=== PATIENT | male | born 1975 | race Hispanic/Latino ===

== ENCOUNTER 2017-01-23 01:42 | Emergency (ER) | payer BC ==
[2017-01-23 01:51] VITALS: BMI 41.5
--- NOTE | 2017-01-23 02:13 | ED PDOC ---
Arrival/HPI - History of Present Illness Time/Duration: 1-3 hours Symptom Onset: Sudden Symptom Course: Unchanged Quality: Aching Severity Level: 7 Activities at Onset: Rest Context: Home - General Chief Complaint: GI Problem - History of Present Illness Narrative History of Present Illness (Text): 01/23/17 02:11 41yo M PMH Hemorrhoids, nephrolithiasis, and Hypertension w/ hx of cholecystitis who presents with complaints of bright red blood on tissue paper. Pt states that he went to use the bathroom and had a large watery bowel movement. Pt wiped and noticed blood on tissue paper. Pt took two Tylenol and went to sleep, but woke up again and had another large watery bowel movement and took a shower and came to the emergency department. Pt states that he has had these episodes before, and per Dr. Nino, who told him to go to ER if it happens again. Pt denies active bleeding, constipation, headaches, fevers, n/v. SHx +tobacco use 1pk/d. (KAYLEIGH MONTEMAYOR) Past Medical History - Provider Review Nursing Documentation Reviewed: Yes - Infectious Disease Hx of Infectious Diseases: None - Tetanus Immunization Tetanus Immunization: Unknown - Cardiac Hx Cardiac Disorders: Yes Hx Hypertension: Yes - Pulmonary Hx Bronchitis: Yes Hx Pneumonia: Yes - Neurological Hx Neurological Disorder: No - HEENT Hx HEENT Disorder: No - Renal Hx Renal Disorder: No - Endocrine/Metabolic Hx Endocrine Disorders: No - Hematological/Oncological Hx Blood Disorders: No - Integumentary Hx Dermatological Disorder: No - Musculoskeletal/Rheumatological Hx Falls: No Other/Comment: back sx - Gastrointestinal Hx Gastrointestinal Disorders: Yes Hx Hemorrhoids: Yes - Genitourinary/Gynecological Other/Comment: Kidney stones - Psychiatric Hx Psychophysiologic Disorder: No Hx Substance Use: No - Surgical History Hx Cholecystectomy: Yes Hx Orthopedic Surgery: Yes (BACK) - Anesthesia Hx Anesthesia: Yes Hx Anesthesia Reactions: No Hx Malignant Hyperthermia: No - Suicidal Assessment Feels Threatened In Home Enviroment: No Family/Social History - Physician Review Nursing Documentation Reviewed: Yes Family/Social History: No Known Family HX Smoking Status: Heavy Smoker > 10 Cigarettes Daily Hx Alcohol Use: No Hx Substance Use: No Hx Substance Use Treatment: No Allergies/Home Meds Allergies/Adverse Reactions: Allergies cilantro Allergy (Uncoded 04/26/14 12:46) RASH scallion Allergy (Uncoded 04/26/14 12:46) RASH Review of Systems - Physician Review All systems were reviewed & negative as marked: Yes - Review of Systems Constitutional: Normal. absent: Fatigue Respiratory: Normal Cardiovascular: Normal Gastrointestinal: Other (blood on tissue paper s/p BM) Physical Exam - Physical Exam Physical Exam Limitations: Altered Mental Status Vital Signs Reviewed: Yes Appearance: Positive for: Well-Appearing Pain Distress: None Mental Status: Positive for: Alert and Oriented X 3 - Systems Exam Head: Present: Atraumatic, Normocephalic Pupils: Present: PERRL Extroacular Muscles: Present: EOMI Conjunctiva: Present: Normal Neck: Present: Normal Range of Motion Respiratory/Chest: Present: Clear to Auscultation, Good Air Exchange Cardiovascular: Present: Regular Rate and Rhythm, Normal S1, S2 Abdomen: Present: Normal Bowel Sounds. No: Tenderness, Distention Rectal: Present: Rectal Tenderness, Hemorrhoids (external non-thrombosed). No: Occult Blood, Gross Blood, Fissures, Nodule/Mass/Lesions Upper Extremity: Present: Normal Inspection Lower Extremity: Present: Normal Inspection Neurological: Present: CN II-XII Intact, Speech Normal Skin: Present: Warm, Dry, Normal Color Psychiatric: Present: Alert, Oriented x 3 Vital Signs Temp Pulse Resp BP Pulse Ox 01/23/17 02:57 96 H 18 100 01/23/17 02:47 98.4 F 120 H 17 149/96 H 99 Medical Decision Making ED Course and Treatment: 01/23/17 02:29 Impression: external hemorrhoids Plan: - Reassess and disposition Progress Notes: no blood noted on LOW (KAYLEIGH MONTEMAYOR) Patient seen and examined with resident. Came up with treatment and disposition plan with resident. (Garfield Schilling) Disposition/Present on Arrival - Present on Arrival Any Indicators Present on Arrival: No History of DVT/PE: No History of Uncontrolled Diabetes: No Urinary Catheter: No History of Decub. Ulcer: No History Surgical Site Infection Following: None - Disposition Have Diagnosis and Disposition been Completed?: Yes Disposition Time: 02:30 Patient Plan: Discharge - Disposition Diagnosis: Hemorrhoid Disposition: HOME/ ROUTINE Patient Problems: Current Active Problems Problem Status Onset Hemorrhoid Acute Condition: GOOD Discharge Instructions (ExitCare): Hemorrhoids (ED) Additional Instructions: PLEASE RETURN TO THE EMERGENCY DEPARTMENT FOR NEW OR WORSENING SYMPTOMS. RETURN RIGHT AWAY IF YOU CANNOT FOLLOW UP WITH YOUR PRIMARY CARE DOCTOR, CLINIC, OR SPECIALIST IN 1-2 DAYS. Prescriptions: Hydrocortisone 2.5% (Rectal) [Anusol-HC] 30 applic TP BID #1 tube Referrals: Reuben See MD [Medical Doctor] - Follow up with primary Forms: [employer] ([place]ander), WORK NOTE
[2017-01-23 02:48] VITALS: BP 149/96; TEMP 98.4
[2017-01-23 02:58] VITALS: PULSE 96; RESP 18; O2SAT 100
== END 2017-01-23 03:05 | disposition home or self-care (01) ==
LOC: ED 01:42
DX: K64.4 Residual hemorrhoidal skin tags (principal); I10 Essential (primary) hypertension

== ENCOUNTER 2018-08-10 19:21 | Emergency (ER) | payer BC ==
[2018-08-10 19:27] VITALS: BMI 44.4
[2018-08-10 19:30] VITALS: TEMP 97.6
[2018-08-10 20:00] LABS: BASO # 0.01 K/mm3 (0.0-2.0); BASO % 0.1 % (0.0-3.0); EOS # 0.1 (0.0-0.7); EOS % 0.7 % (1.5-5.0); HEMOGLOBIN 16.5 g/dL (14.0-18.0); LYMPH # 1.4 (1.2-3.4); MEAN CELL VOLUME 87.3 fl (80.0-105.0); MEAN CORPUSCULAR HEMOGLOBIN 30.3 pg (25.0-35.0); MEAN CORPUSCULAR HGB CONC 34.7 g/dl (31.0-37.0); MEAN PLATELET VOLUME 9.3 fl (7.0-11.0); MONO # 0.8 (0.1-0.6); MONO % 6.1 % (1.0-6.0); RBC 5.44 10^6/uL (3.5-6.1); RED CELL DISTRIBUTION WIDTH 14.5 % (11.5-14.5); WHITE BLOOD COUNT 12.9 10^3/uL (4.5-11.0)
[2018-08-10 20:11] LABS: INR 1.02; PARTIAL THROMBOPLASTIN TIME 34.2 Seconds (26.9-38.3); PROTHROMBIN TIME 11.3 SECONDS (9.4-12.5)
[2018-08-10 20:14] LABS: ALB/GLOB RATIO 1.4 (1.1-1.8); ALBUMIN 4.5 g/dL (3.0-4.8); ALT/SGPT 27 U/L (7-56); AST/SGOT 26 U/L (17-59); BLOOD UREA NITROGEN 14 mg/dL (7-21); CALCIUM 9.4 mg/dL (8.4-10.5); GFR NON-AFRICAN AMERICAN > 60; LIPASE 194 U/L (23-300)
[2018-08-10 20:25] LABS: TROPONIN I < 0.01 ng/mL
[2018-08-10] MEDS ORDERED: Morphine 2 mg/ml ISec IVP STA (20:38)
--- NOTE | 2018-08-10 21:05 | ED PDOC ---
Arrival/HPI - General Chief Complaint: Abdominal Pain Time Seen by Provider: 08/10/18 19:28 Historian: Patient - History of Present Illness Narrative History of Present Illness (Text): 08/10/18 20:42 Nasim Knox is 43 y.o Male with past medical history Hemorrhoids, nephrolithiasis, and Hypertension w/ hx of cholecystitis, former smoker, who presents to emergency department complaining of left lower quadrant abdominal pain since 2:00pm. Patient states he woke due to the pain coming from his abdomen that is radiating to the back. Patient state severity of pain as 10, but has not taken any medication for the pain. Patient notes he has had abdominal pain before but not as severe as today. Patient states he is feeling nauseous, but denies any fevers, chill, chest pain, vomiting, diarrhea, neck pain, urinary symptoms, or any other associated symptoms. Time/Duration: 4-6 hours (2:00pm) Symptom Onset: Gradual Severity Level: 10 Context: Home Past Medical History - Provider Review Nursing Documentation Reviewed: Yes - Infectious Disease Hx of Infectious Diseases: None - Tetanus Immunization Tetanus Immunization: Unknown - Cardiac Hx Cardiac Disorders: Yes Hx Hypertension: Yes - Pulmonary Hx Bronchitis: Yes Hx Pneumonia: Yes - Neurological Hx Neurological Disorder: No - HEENT Hx HEENT Disorder: No - Renal Hx Renal Disorder: No - Endocrine/Metabolic Hx Endocrine Disorders: No - Hematological/Oncological Hx Blood Disorders: No - Integumentary Hx Dermatological Disorder: No - Musculoskeletal/Rheumatological Hx Falls: No Other/Comment: back sx - Gastrointestinal Hx Gastrointestinal Disorders: Yes Hx Hemorrhoids: Yes - Genitourinary/Gynecological Other/Comment: Kidney stones - Psychiatric Hx Psychophysiologic Disorder: No Hx Substance Use: No - Surgical History Hx Cholecystectomy: Yes Hx Orthopedic Surgery: Yes (BACK) - Anesthesia Hx Anesthesia: Yes Hx Anesthesia Reactions: No Hx Malignant Hyperthermia: No - Suicidal Assessment Feels Threatened In Home Enviroment: No Family/Social History - Physician Review Nursing Documentation Reviewed: Yes Family/Social History: Unknown Family HX Smoking Status: Heavy Smoker > 10 Cigarettes Daily Hx Alcohol Use: No Hx Substance Use: No Hx Substance Use Treatment: No Allergies/Home Meds Allergies/Adverse Reactions: Allergies cilantro Allergy (Uncoded 08/10/18 19:27) RASH scallion Allergy (Uncoded 08/10/18 19:27) RASH Review of Systems - Physician Review All systems were reviewed & negative as marked: Yes - Review of Systems Constitutional: absent: Fatigue, Fevers Eyes: absent: Vision Changes ENT: absent: Hearing Changes Respiratory: absent: SOB, Cough, Wheezing Cardiovascular: absent: Chest Pain Gastrointestinal: Abdominal Pain (Pain on left lower quadrant of abdomen radiating to the back. ), Nausea. absent: Stool Changes, Constipation, Diarrhea, Vomiting Musculoskeletal: absent: Neck Pain Skin: absent: Rash Neurological: absent: Headache, Dizziness Psychiatric: absent: Anxiety, Depression Physical Exam Vital Signs Temp Pulse Resp BP Pulse Ox 08/10/18 19:28 97.6 F 102 H 18 142/62 97 Temperature: Afebrile Blood Pressure: Normal Pulse: Tachycardic Respiratory Rate: Normal Appearance: Positive for: Well-Appearing, Non-Toxic Pain Distress: None Mental Status: Positive for: Alert and Oriented X 3 - Systems Exam Head: Present: Atraumatic, Normocephalic Pupils: Present: PERRL. No: Sluggish, Non-Reactive Extroacular Muscles: Present: EOMI Conjunctiva: Present: Normal Mouth: Present: Moist Mucous Membranes Neck: Present: Normal Range of Motion. No: Meningeal Signs, JVD Respiratory/Chest: Present: Clear to Auscultation, Good Air Exchange. No: Respiratory Distress, Accessory Muscle Use, Wheezes, Decreased Breath Sounds, Rhonchi Cardiovascular: Present: Regular Rate and Rhythm, Normal S1, S2. No: Murmurs Abdomen: Present: Distention (Abdomen diffused and distended.), Guarding, Other ( No rigidity ) Back: Present: Normal Inspection. No: Midline Tenderness Upper Extremity: Present: Normal Inspection, Normal ROM. No: Cyanosis, Edema, Tenderness, Swelling Lower Extremity: Present: Normal Inspection. No: Edema, Tenderness, Swelling Neurological: Present: GCS=15, Speech Normal Skin: Present: Warm, Dry, Normal Color. No: Rashes Psychiatric: Present: Alert, Oriented x 3, Normal Insight, Normal Concentration Medical Decision Making ED Course and Treatment: 08/10/18 21:35 Impression: 43 y/o male who presents to the emergency department complaining of left lower quadrant abdominal pain. Plan: -- Labs -- Abdominal/ Pelvis CT -- Chest-X- Ray -- Reassess and disposition Prior Visits: Notes and results from previous visits were reviewed. Progress Notes: - Lab Interpretations Lab Results: PT 11.3 SECONDS (9.4-12.5) 08/10/18 19:55 INR 1.02 08/10/18 19:55 APTT 34.2 Seconds (26.9-38.3) 08/10/18 19:55 Troponin I < 0.01 ng/mL 08/10/18 19:55 Total Bilirubin 0.8 mg/dL (0.2-1.3) 08/10/18 19:55 AST 26 U/L (17-59) 08/10/18 19:55 ALT 27 U/L (7-56) 08/10/18 19:55 Alkaline Phosphatase 159 U/L (38-126) H 08/10/18 19:55 Total Protein 7.8 g/dL (5.8-8.3) 08/10/18 19:55 Albumin 4.5 g/dL (3.0-4.8) 08/10/18 19:55 Globulin 3.3 gm/dL 08/10/18 19:55 Albumin/Globulin Ratio 1.4 (1.1-1.8) 08/10/18 19:55 Lipase 194 U/L (23-300) 08/10/18 19:55 - RAD Interpretation Narrative RAD Interpretations (Text): 08/10/18 23:20 CT Abdomen and Pelvis with IV contrast IMPRESSION: 1. An obstructing 1.7 cm calculus is noted at the left UPJ. This creates associated mild-moderate left hydronephrosis and left perinephric stranding. 2. Bilateral non-obstructing calculi are seen in the lower pole of each kidney; more numerous on the left. 3. Hepatomegaly with diffuse steatosis. 4. Status post cholecystectomy. 5. Postsurgical changes at L5-S1 as described above. 6. Small bilateral inguinal hernias which each contain fat; slightly larger on the right. Radiology Orders: 08/10/18 19:34 CHEST PORTABLE [RAD] Stat 08/10/18 19:48 ABDOMEN & PELVIS [ABD & PELVIS IV CONTRAST ONLY] [CT] Stat Vascular Technician: Radiologist - Medication Orders Current Medication Orders: Discontinued Medications Morphine Sulfate (Morphine) 6 mg IVP STAT STA Stop: 08/10/18 20:39 - Scribe Statement The provider has reviewed the documentation as recorded by the Scribe All medical record entries made by the Scribe were at my direction and personally dictated by me. I have reviewed the chart and agree that the record accurately reflects my personal performance of the history, physical exam, medical decision making, and the department course for this patient. I have also personally directed, reviewed, and agree with the discharge instructions and disposition. Disposition/Present on Arrival - Present on Arrival History of DVT/PE: No History of Uncontrolled Diabetes: No Urinary Catheter: No History of Decub. Ulcer: No History Surgical Site Infection Following: None - Disposition Diagnosis: Nephrolithiasis Disposition: HOME/ ROUTINE Patient Problems: Current Active Problems Problem Status Onset Nephrolithiasis Acute Condition: IMPROVED Discharge Instructions (ExitCare): Kidney Stones (DC) Print Language: SOUTH SUDANESE Additional Instructions: All medical record entries made by the Scribe were at my direction and personally dictated by me. I have reviewed the chart and agree that the record accurately reflects my personal performance of the history, physical exam, medical decision making, and the department course for this patient. I have also personally directed, reviewed, and agree with the discharge instructions and disposition. Please take pain medications as prescribed. Please follow up with a urologist Prescriptions: Diazepam [Valium] 10 mg PO Q6H #6 tablet Naproxen 500 mg PO BID #12 tab Referrals: Nasim Young DO [Primary Care Provider] - Follow up with primary Ozzie Iyer MD [Staff Provider] - Follow up with primary Marilia Iyer MD [Staff Provider] - Follow up with primary Forms: [employer] ([place]), WORK NOTE
[2018-08-10] MEDS ORDERED: metroNIDAZOLE IV 500 mg/100 ml 500 MG/100 ML BAG IVPB STA (21:07)
[2018-08-10] MEDS ORDERED: Ciprofloxacin 400mg/200ml D5W 400 MG/200 ML BAG IVPB STA (21:07)
[2018-08-10 22:18] LABS: URINE APPEARANCE CLEAR (CLEAR); URINE BILIRUBIN NEGATIVE (NEGATIVE); URINE BLOOD LARGE (NEGATIVE); URINE COLOR YELLOW (YELLOW); URINE GLUCOSE (UA) NEGATIVE (NEGATIVE); URINE LEUKOCYTE ESTERASE NEGATIVE Leu/uL (NEGATIVE); URINE PROTEIN NEGATIVE mg/dL (<30 mg/dL); URINE UROBILINOGEN 0.2 E.U./dL (<1 E.U./dL)
[2018-08-10 22:21] LABS: URINE EPITHELIAL CELLS 0 - 2 /hpf (0-5)
[2018-08-11 00:43] VITALS: BP 135/69; PULSE 89; RESP 15; O2SAT 99
--- NOTE | 2018-08-11 09:03 | RAD ---
Date of service: 08/10/2018 HISTORY: Abdominal pain COMPARISON: 04/26/2014 TECHNIQUE: 1 view obtained. FINDINGS: LUNGS: No active pulmonary disease. PLEURA: No significant pleural effusion identified, no pneumothorax apparent. CARDIOVASCULAR: No aortic atherosclerotic calcification present. Normal cardiac size. No pulmonary vascular congestion. OSSEOUS STRUCTURES: No significant abnormalities. VISUALIZED UPPER ABDOMEN: Normal. OTHER FINDINGS: None. IMPRESSION: No active disease.
--- NOTE | 2018-08-11 12:55 | CT ---
Date of service: 08/10/2018 PROCEDURE: CT Abdomen and Pelvis with contrast HISTORY: LLQ pain COMPARISON: None. TECHNIQUE: Contrast dose: Radiation dose: Total exam DLP = 1372.0 mGy-cm. This CT exam was performed using one or more of the following dose reduction techniques: Automated exposure control, adjustment of the mA and/or kV according to patient size, and/or use of iterative reconstruction technique. FINDINGS: LOWER THORAX: Unremarkable. LIVER: Fatty liver. No gross lesion or ductal dilatation. GALLBLADDER AND BILE DUCTS: Cholecystectomy. PANCREAS: Unremarkable. No gross lesion or ductal dilatation. SPLEEN: Unremarkable. ADRENALS: Unremarkable. No mass. KIDNEYS AND URETERS: 17 millimeter obstructive calculus at the left UPJ with associated mild to moderate left hydronephrosis and left perinephric stranding. Superimposed bilateral nonobstructive renal calculi. Small left renal cyst. VASCULATURE: Unremarkable. No aortic aneurysm. No aortic atherosclerotic calcification or mural plaque present. BOWEL: Unremarkable. No obstruction. No gross mural thickening. APPENDIX: Normal appendix. PERITONEUM: Unremarkable. No free fluid. No free air. LYMPH NODES: Unremarkable. No enlarged lymph nodes. BLADDER: Unremarkable. REPRODUCTIVE: Unremarkable. BONES: No acute fracture. Status post lumbar surgery. OTHER FINDINGS: Bilateral fat containing inguinal hernias. IMPRESSION: 17 millimeter obstructive calculus at the left UPJ with associated mild to moderate left hydronephrosis and left perinephric stranding. Superimposed bilateral nonobstructive renal calculi. Additional findings above.
== END 2018-08-11 00:35 | disposition home or self-care (01) ==
LOC: ED 19:21
DX: N20.0 Calculus of kidney (principal); I10 Essential (primary) hypertension; Z90.49 Acquired absence of other specified parts of digestive tract; F17.210 Nicotine dependence, cigarettes, uncomplicated
CPT/HCPCS: 71045; 74177; 80053; 81001; 83690; 84484; 85025; 85610; 85730; 87040; 96365; 96375; 99284; J0744; J2270; Q9967

== ENCOUNTER 2018-08-17 15:36 | Outpatient (CLI) | payer BC | END 2018-08-17 15:37 | disposition home or self-care (01) | LOC: RAD 15:36 ==

== ENCOUNTER 2018-08-26 09:47 | Day surgery (SDC) | payer BC ==
[2018-08-20 13:31] VITALS: BMI 45.1
[2018-08-26] MEDS ORDERED: cefTRIAXone (Rocephin) 1 gm Inj ONE ×2 (12:46→13:02)
[2018-08-26] MEDS ORDERED: Propofol 10 mg/ml Inj (20 ML) ONE (12:57)
[2018-08-26] MEDS ORDERED: Lidocaine 1% Inj (20ml) ONE (12:57)
[2018-08-26] MEDS ORDERED: cefTRIAXone 1 GM in NS 100 ML BAG IVPB ONE (13:00)
[2018-08-26] MEDS ORDERED: Lidocaine 2% Jelly (Uro-Jet) ONE (13:11)
[2018-08-26] MEDS ORDERED: Acetaminophen IV 1,000 MG in Premixed IV 100 EA IVPB ONE (13:32)
[2018-08-26] MEDS ORDERED: HYDROmorphone 0.5 mg/0.5 ml ISec IVP PRN (13:33)
[2018-08-26] MEDS ORDERED: DiphenhydrAMINE 50 mg/ml Inj IVP ONE ×2 (13:34→13:36)
[2018-08-26] MEDS ORDERED: HYDROmorphone 0.5 mg/0.5 ml ISec IVP ONE (13:40)
[2018-08-26] MEDS ORDERED: Lactated Ringer's 1,000 ML IV SCH (13:45)
[2018-08-26 14:38] VITALS: BP 128/84; PULSE 83; RESP 18; TEMP 97.9; O2SAT 98
--- NOTE | 2018-08-26 17:50 | RAD ---
Date of service: 08/26/2018 PROCEDURE: Fluoroscopy up to 1 hr. HISTORY: Left Stent Insertion COMPARISON: None TECHNIQUE: Standard protocol for this study/examination. FINDINGS: Total fluoroscopic time (continuous mode) utilized during the procedure 6.8 seconds. Total exam DLP: 17.70 (mGy). Submitted images from the current procedure: 3.0 IMPRESSION: Less than 1 hr fluoroscopic assistance provided during performance of the procedure.
--- NOTE | 2018-08-26 20:22 | OP ---
PROCEDURE DATE: 08/26/2018 PREOPERATIVE DIAGNOSES: Left hydronephrosis, left renal pelvic stone. POSTOPERATIVE DIAGNOSES: Left hydronephrosis, left renal pelvic stone, meatal stenosis. PROCEDURE: Meatal dilation with sounds, cystoscopy, left retrograde pyelogram, insertion of a left ureteral stent. ATTENDING SURGEON: Pb Torres MD ANESTHESIA: General. SPECIMENS: There were none. DRAINS: A 6 x 26 left ureteral stent. COMPLICATIONS There were none. OPERATIVE FINDINGS: After informed consent was obtained, the patient was taken to the operating room, placed in the operating table and anesthesia was administered. The patient was then placed in dorsal lithotomy position and prepped and draped in the usual sterile fashion. The patient received IV antibiotics prior to start of the procedure. The first attempt was made to pass a 22-English cystoscope. The patient has had meatal stenosis. Therefore urethral sounds were obtained and the meatus was then sequentially dilated to 24-English size. After adequate dilation, sounds were removed, the 22 scope was then able to be easily passed and advanced throughout the urethra until the bladder was entered. A full survey inspection of the bladder was then performed which revealed no stones, tumors or foreign bodies of the bladder. Both ureteral orifices were visualized and appeared within normal limits. At this point, a 5-English open-ended ureteral catheter was introduced through the cystoscope and guided into the left ureteral orifice. When inside the orifice, contrast was then instilled into the ureter during real-time fluoroscopy. There was a large filling defect noted in the left renal pelvis. There was mild hydronephrosis above this point. The calculus was not visible on plain fluoroscopy. At this point, a sensor wire was obtained. The sensor wire was then passed through the open-ended ureteral catheter advanced up the ureter under fluoroscopic guidance. The wire was able to be manipulated past the stone and coiled in the upper collecting system. Once the wire was in place, the open-ended ureteral catheter was removed and a 6 x 26 stent was obtained. The stent was then passed under direct vision under fluoroscopic guidance through the scope over the wire and when it was in proper position the wire was then removed. A coil was seen in the kidney above the stone which was located in the renal pelvis. Coil was seen in the bladder on cystoscopy. A large amount of turbid urine was noted to be draining through the stent at the end of the procedure. At this point the procedure was completed, the bladder was drained. The cystoscope was removed. The patient tolerated the procedure well. He was returned to the supine position and taken to the recovery room awake in stable condition. Pb Torres MD
--- NOTE | 2018-08-26 21:07 | CARD ---
APPROVED REPORT Date of service: 08/26/2018 EKG Measurement Heart [id number] <Conclusion> Normal sinus rhythm Normal ECG
== END 2018-08-26 16:00 | disposition home or self-care (01) ==
LOC: SDS 09:47
PROVIDERS: ATTEND Urology
DX: N35.911 Unspecified urethral stricture, male, meatal (principal); N13.2 Hydronephrosis with renal and ureteral calculous obstruction
CPT/HCPCS: 52282; 74420; 93005; C1769; C2625; J0131; J0696; J1170; J1200; J2405; J2704; J2765; J3010; J7120 ×2